=== PATIENT | male | born 1980 | race Hispanic/Latino ===

== ENCOUNTER 2021-10-14 00:44 | Inpatient (IN) | payer SELFPAY ==
[~2021-10-14] VITALS: Ht 165.1 cm; Wt 69.9 kg
[2021-10-14] VITALS (8 sets, daily range): BP systolic 101–121; BP diastolic 73–80
[2021-10-14] MEDS: PIPERACILLIN/TAZOBACTAM 3.375 GM in SODIUM CHLORIDE 0.9% 50ML 50 ML IV SCH ×6 (02:00→18:18)
[2021-10-14] MEDS: SODIUM CHLORIDE 0.9% 1000ML 1,000 ML IV SCH ×4 (02:00→17:00)
[2021-10-14 02:10] LABS: BASOPHILS % 0.1 % (0.0-1.0); HEMATOCRIT 41.4 % (38.2-49.6); LYMPHOCYTES # (AUTO) 1.4 (1.0-3.2); LYMPHOCYTES % 16.1 % (18.0-39.1); MEAN CORPUSCULAR HEMOGLOBIN 33.3 pg (28-32); MEAN CORPUSCULAR HGB CONC 36.2 g/dL (31-35); MONOCYTES # (AUTO) 0.5 (0.2-0.8); MONOCYTES % 5.6 % (4.4-11.3); NEUTROPHILS # (AUTO) 6.5 (2.1-6.9); NEUTROPHILS % 77.8 % (38.7-80.0); PLATELET COUNT 101 x10e3/uL (140-360)
[2021-10-14 02:26] LABS: ALBUMIN 3.1 g/dL (3.5-5.0); ALBUMIN/GLOBULIN RATIO 0.8 (0.8-2.0); ANION GAP 18.9 mmol/L (8-16); CALCIUM 9.2 mg/dL (8.4-10.2); CREATININE, SERUM 0.97 mg/dL (0.72-1.25); POTASSIUM 3.9 mmol/L (3.5-5.1)
[2021-10-14] MEDS: Morphine 2mg Syringe 2 MG/ML SYR IV PRN ×2 (04:59→22:04)
[2021-10-14] MEDS ORDERED: METFORMIN HCL500 MG PO (05:52)
[2021-10-14] MEDS ORDERED: DEXTROSE 50% SYRINGE 50 ML IV PRN (11:00)
[2021-10-14] MEDS: INSULIN LISPRO 100 UNIT/1 ML 3ML VIAL SQ SCH ×3 (11:30→21:00)
[2021-10-14] MEDS ORDERED: ACETAMINOPHEN 325 MG TAB PO PRN (16:15)
[2021-10-15] VITALS (9 sets, daily range): BP systolic 112–132; BP diastolic 73–93
[2021-10-15] MEDS: PIPERACILLIN/TAZOBACTAM 3.375 GM in SODIUM CHLORIDE 0.9% 50ML 50 ML IV SCH ×4 (00:38→22:50)
[2021-10-15] MEDS: SODIUM CHLORIDE 0.9% 1000ML 1,000 ML IV SCH ×3 (01:00→17:25)
[2021-10-15 06:22] LABS: INR 0.95; PROTHROMBIN TIME 13.3 seconds (11.9-14.5)
[2021-10-15 06:23] LABS: PARTIAL THROMBOPLASTIN TIME 36.2 seconds (23.8-35.5)
[2021-10-15 06:29] LABS: ALBUMIN 2.6 g/dL (3.5-5.0); ALBUMIN/GLOBULIN RATIO 0.7 (0.8-2.0); ANION GAP 18.5 mmol/L (8-16); CALCIUM 8.5 mg/dL (8.4-10.2); CREATININE, SERUM 0.74 mg/dL (0.72-1.25); MAGNESIUM 1.7 MG/DL (1.3-2.1); POTASSIUM 3.5 mmol/L (3.5-5.1)
[2021-10-15] MEDS: INSULIN LISPRO 100 UNIT/1 ML 3ML VIAL SQ SCH ×4 (07:30→20:40)
[2021-10-15 10:03] LABS: BASOPHILS % 0.1 % (0.0-1.0); HEMATOCRIT 37.8 % (38.2-49.6); HEMOGLOBIN 13.1 g/dL (14.0-18.0); LYMPHOCYTES # (AUTO) 1.3 (1.0-3.2); LYMPHOCYTES % 18.2 % (18.0-39.1); MEAN CORPUSCULAR HEMOGLOBIN 33.5 pg (28-32); MEAN CORPUSCULAR HGB CONC 34.7 g/dL (31-35); MEAN CORPUSCULAR VOLUME 96.7 fL (81-99); MONOCYTES # (AUTO) 0.4 (0.2-0.8); MONOCYTES % 4.9 % (4.4-11.3); NEUTROPHILS # (AUTO) 5.5 (2.1-6.9); NEUTROPHILS % 76.4 % (38.7-80.0); PLATELET COUNT 109 x10e3/uL (140-360); RED BLOOD COUNT 3.91 x10e6/uL (4.3-5.7); RED CELL DISTRIBUTION WIDTH 11.8 % (11.7-14.4)
[2021-10-15] MEDS ORDERED: BUPIVACAINE 0.25% 30ML SDV ONE (12:29)
[2021-10-15] MEDS ORDERED: GLYCOPYRROLATE INJ 0.2 MG/ML VIAL ONE (12:49)
[2021-10-15] MEDS ORDERED: LIDOCAINE HCL 2% LOCAL INJ 5 ML SDV VIAL INJ ONE (12:49)
[2021-10-15] MEDS ORDERED: SEVOFLURANE INHAL SOLN 250 ML PEN BTL ONE (12:49)
[2021-10-15] MEDS ORDERED: NEOSTIGMINE 1 MG/ML 10ML VIAL ONE (12:49)
[2021-10-15] MEDS ORDERED: POVIDONE IODINE 0.05% 0.05 % ML PO ONE (12:49)
[2021-10-15] MEDS ORDERED: ONDANSETRON HCL INJ 2MG/ML 2ML 2 MG/ML VIAL ONE (12:49)
[2021-10-15] MEDS ORDERED: ROCURONIUM BROMIDE 10 MG/ML 5ML VIAL IV ONE (12:49)
[2021-10-15] MEDS ORDERED: DEXAMETHASONE SOD PHOS INJ 4 MG/ML SDV ONE (12:49)
[2021-10-15] MEDS ORDERED: PROPOFOL IV EMULSION 10 MG/ML 20 ML VIAL ONE (12:49)
[2021-10-15] MEDS ORDERED: FENTANYL CITRATE/PF 100MCG/2 ML INJ ONE (13:09)
[2021-10-15] MEDS ORDERED: MIDAZOLAM HCL 2 MG/2 ML VIAL ONE (13:09)
[2021-10-15] MEDS ORDERED: HYDROMORPHONE 1MG/1ML INJ ONE (14:30)
[2021-10-15] MEDS ORDERED: KETOROLAC TROMETHAMINE 30 MG/ML VIAL IV PRN (15:30)
[2021-10-15] MEDS: Morphine 2mg Syringe 2 MG/ML SYR IV PRN (21:01)
[2021-10-16] VITALS (10 sets, daily range): BP systolic 126–148; BP diastolic 82–96
[2021-10-16] MEDS: SODIUM CHLORIDE 0.9% 1000ML 1,000 ML IV SCH (00:58)
[2021-10-16] MEDS: Morphine 2mg Syringe 2 MG/ML SYR IV PRN ×4 (01:08→10:07)
[2021-10-16] MEDS: HYDROCODONE/APAP 7.5MG-325MG 1 EA TAB PO PRN (04:34)
[2021-10-16] MEDS: PIPERACILLIN/TAZOBACTAM 3.375 GM in SODIUM CHLORIDE 0.9% 50ML 50 ML IV SCH ×4 (05:20→23:26)
[2021-10-16 07:06] LABS: BASOPHILS % 0.2 % (0.0-1.0); HEMATOCRIT 41.9 % (38.2-49.6); HEMOGLOBIN 14.4 g/dL (14.0-18.0); LYMPHOCYTES # (AUTO) 1.3 (1.0-3.2); LYMPHOCYTES % 12.6 % (18.0-39.1); MEAN CORPUSCULAR HEMOGLOBIN 33.2 pg (28-32); MEAN CORPUSCULAR HGB CONC 34.4 g/dL (31-35); MEAN CORPUSCULAR VOLUME 96.5 fL (81-99); MONOCYTES # (AUTO) 0.6 (0.2-0.8); MONOCYTES % 6.3 % (4.4-11.3); NEUTROPHILS # (AUTO) 8.1 (2.1-6.9); NEUTROPHILS % 80.3 % (38.7-80.0); PLATELET COUNT 137 x10e3/uL (140-360); RED BLOOD COUNT 4.34 x10e6/uL (4.3-5.7); RED CELL DISTRIBUTION WIDTH 11.3 % (11.7-14.4)
[2021-10-16 07:44] LABS: ALBUMIN 2.6 g/dL (3.5-5.0); ALBUMIN/GLOBULIN RATIO 0.6 (0.8-2.0); ANION GAP 20.8 mmol/L (8-16); CALCIUM 8.6 mg/dL (8.4-10.2); CREATININE, SERUM 0.76 mg/dL (0.72-1.25); MAGNESIUM 1.7 MG/DL (1.3-2.1); POTASSIUM 3.8 mmol/L (3.5-5.1)
[2021-10-16] MEDS: INSULIN LISPRO 100 UNIT/1 ML 3ML VIAL SQ SCH ×4 (08:30→20:56)
[2021-10-16] MEDS ORDERED: ONDANSETRON HCL INJ 2MG/ML 2ML 2 MG/ML VIAL IV PRN (09:00)
[2021-10-16] MEDS: HYDROMORPHONE 1MG/1ML INJ IV PRN ×3 (12:55→21:10)
[2021-10-16] MEDS ORDERED: MAGNESIUM OXIDE 400 MG TAB PO NR (16:00)
[2021-10-16 16:22] LABS: ABG HCO3 10 mmol/L (22-26); ABG PCO2 18 mmHg (35-45); ABG PH 7.34 (7.35-7.45); ABG PO2 78 mmHg (80-105); ABG TCO2 10
[2021-10-16] MEDS ORDERED: SODIUM BICARBONATE 8.4% 150 ML in DEXTROSE 5% 1,000 ML IV SCH (16:30)
[2021-10-16] MEDS ORDERED: INSULIN GLARGINE 100 UNITS/ML VIAL SQ SCH (21:00)
[2021-10-17] VITALS (10 sets, daily range): BP systolic 115–126; BP diastolic 71–85
[2021-10-17] MEDS: Morphine 2mg Syringe 2 MG/ML SYR IV PRN ×2 (00:20→23:45)
[2021-10-17] MEDS: HYDROMORPHONE 1MG/1ML INJ IV PRN ×3 (05:01→16:45)
[2021-10-17] MEDS: PIPERACILLIN/TAZOBACTAM 3.375 GM in SODIUM CHLORIDE 0.9% 50ML 50 ML IV SCH ×4 (05:01→22:05)
[2021-10-17 06:52] LABS: BASOPHILS % 0.3 % (0.0-1.0); EOSINOPHILS % 0.4 % (0.0-6.0); HEMATOCRIT 37.3 % (38.2-49.6); HEMOGLOBIN 13.7 g/dL (14.0-18.0); LYMPHOCYTES # (AUTO) 1.3 (1.0-3.2); LYMPHOCYTES % 17.6 % (18.0-39.1); MEAN CORPUSCULAR HEMOGLOBIN 33.3 pg (28-32); MEAN CORPUSCULAR HGB CONC 36.7 g/dL (31-35); MEAN CORPUSCULAR VOLUME 90.8 fL (81-99); MONOCYTES # (AUTO) 0.7 (0.2-0.8); MONOCYTES % 9.5 % (4.4-11.3); NEUTROPHILS # (AUTO) 5.4 (2.1-6.9); NEUTROPHILS % 71.4 % (38.7-80.0); PLATELET COUNT 194 x10e3/uL (140-360); RED BLOOD COUNT 4.11 x10e6/uL (4.3-5.7); RED CELL DISTRIBUTION WIDTH 10.9 % (11.7-14.4)
[2021-10-17 07:18] LABS: ALBUMIN 2.4 g/dL (3.5-5.0); ALBUMIN/GLOBULIN RATIO 0.6 (0.8-2.0); ANION GAP 19.5 mmol/L (8-16); CALCIUM 8.7 mg/dL (8.4-10.2); CREATININE, SERUM 0.78 mg/dL (0.72-1.25); POTASSIUM 3.5 mmol/L (3.5-5.1)
[2021-10-17] MEDS ORDERED: BISACODYL 10 MG SUPP PR ONE (08:00)
[2021-10-17] MEDS: INSULIN LISPRO 100 UNIT/1 ML 3ML VIAL SQ SCH ×4 (08:30→22:05)
[2021-10-17] MEDS: HYDROCODONE/APAP 7.5MG-325MG 1 EA TAB PO PRN ×2 (11:15→18:45)
[2021-10-17] MEDS: SODIUM BICARBONATE 650 MG TAB PO SCH (16:41)
[2021-10-17] MEDS ORDERED: INSULIN GLARGINE 100 UNITS/ML VIAL SQ SCH (21:00)
[2021-10-17] MEDS: BISACODYL 10 MG SUPP PR SCH (21:48)
[2021-10-18] VITALS: BP 112/73
[2021-10-18 04:00] VITALS: BP 116/80
[2021-10-18] MEDS: PIPERACILLIN/TAZOBACTAM 3.375 GM in SODIUM CHLORIDE 0.9% 50ML 50 ML IV SCH ×3 (04:13→17:00)
[2021-10-18 06:41] LABS: ALANINE AMINOTRANSFERASE 12 IU/L (0-55); ALBUMIN 2.3 g/dL (3.5-5.0); ALBUMIN/GLOBULIN RATIO 0.6 (0.8-2.0); ALKALINE PHOSPHATASE 61 IU/L (40-150); ANION GAP 13.7 mmol/L (8-16); BLOOD UREA NITROGEN < 5 mg/dL (7-26); CALCIUM 8.7 mg/dL (8.4-10.2); CARBON DIOXIDE 27 mmol/L (22-29); CHLORIDE 97 mmol/L (98-107); CREATININE, SERUM 0.59 mg/dL (0.72-1.25); EST GLOMERULAR FILTRATION RATE 150 ML/MIN (60-); GLUCOSE 175 mg/dL (74-118); SODIUM 135 mmol/L (136-145)
[2021-10-18 07:16] LABS: BASOPHILS % 0.3 % (0.0-1.0); EOSINOPHILS # (AUTO) 0.1 (0.0-0.4); EOSINOPHILS % 0.7 % (0.0-6.0); HEMATOCRIT 34.8 % (38.2-49.6); HEMOGLOBIN 12.7 g/dL (14.0-18.0); LYMPHOCYTES # (AUTO) 1.6 (1.0-3.2); LYMPHOCYTES % 21.7 % (18.0-39.1); MEAN CORPUSCULAR HEMOGLOBIN 33.2 pg (28-32); MEAN CORPUSCULAR HGB CONC 36.5 g/dL (31-35); MEAN CORPUSCULAR VOLUME 90.9 fL (81-99); MONOCYTES # (AUTO) 0.9 (0.2-0.8); MONOCYTES % 12.2 % (4.4-11.3); NEUTROPHILS # (AUTO) 4.6 (2.1-6.9); NEUTROPHILS % 64.1 % (38.7-80.0); PLATELET COUNT 260 x10e3/uL (140-360); RED BLOOD COUNT 3.83 x10e6/uL (4.3-5.7)
[2021-10-18 07:23] LABS: BUN/CREATININE RATIO 8 (6-25); POTASSIUM 2.7 mmol/L (3.5-5.1)
[2021-10-18] MEDS: BISACODYL 10 MG SUPP PR SCH (08:00)
[2021-10-18 08:11] VITALS: BP 119/78
[2021-10-18] MEDS ORDERED: MAGNESIUM SULFATE 2GM/50ML 50 ML IV ONE (08:30)
[2021-10-18] MEDS: INSULIN LISPRO 100 UNIT/1 ML 3ML VIAL SQ SCH ×3 (08:30→16:54)
[2021-10-18] MEDS ORDERED: POTASSIUM CHLORIDE 20 MEQ TAB CR PO ONE ×4 (08:30→15:36)
[2021-10-18] MEDS ORDERED: SODIUM CHLORIDE 0.9% 250ML 250 ML ONE (08:47)
[2021-10-18] MEDS ORDERED: ONDANSETRON HCL 4 MG ORAL DISINTEGRATING TAB PO PRN (09:00)
[2021-10-18] MEDS: SODIUM BICARBONATE 650 MG TAB PO SCH (09:00)
[2021-10-18 09:41] VITALS: BP 119/78
[2021-10-18 11:31] VITALS: BP 142/87
[2021-10-18] MEDS: HYDROCODONE/APAP 7.5MG-325MG 1 EA TAB PO PRN ×2 (12:40→17:01)
[2021-10-18] MEDS ORDERED: METRONIDAZOLE500 MG PO (14:23)
[2021-10-18] MEDS ORDERED: ONDANSETRON ODT4 MG PO (14:23)
[2021-10-18] MEDS ORDERED: CIPRO500 MG PO (14:23)
[2021-10-18] MEDS ORDERED: INSULIN PEN NE1 EAC3 SC (14:23)
[2021-10-18] MEDS ORDERED: LANTUS 3ML100 UNITS/ SC (14:23)
[2021-10-18] MEDS ORDERED: HYDROCODON-ACE1 EA12 PO (14:23)
[2021-10-18 14:31] LABS: ANION GAP 16.5 mmol/L (8-16); CALCIUM 8.8 mg/dL (8.4-10.2); CREATININE, SERUM 0.66 mg/dL (0.72-1.25); POTASSIUM 3.5 mmol/L (3.5-5.1)
[2021-10-18] MEDS ORDERED: LEVOFLOXACIN250 MG PO (14:33)
[2021-10-18 16:25] VITALS: BP 112/78
== END 2021-10-18 18:20 | disposition home or self-care (01) | DRG 341 ==
LOC: MED/SURG 00:57
PROVIDERS: ADMIT Internal Medicine; ATTEND Internal Medicine
PROC: 0DTJ0ZZ Resection of Appendix, Open Approach (ICD-10-PCS; principal; 2021-10-14)
PROC: 0WJG4ZZ Inspection of Peritoneal Cavity, Percutaneous Endoscopic Approach (ICD-10-PCS; 2021-10-14)
DX: K35.890 Other acute appendicitis without perforation or gangrene (principal); E11.10 Type 2 diabetes mellitus with ketoacidosis without coma; E87.6 Hypokalemia; E83.42 Hypomagnesemia; Z20.822 Contact with and (suspected) exposure to COVID-19; Z79.4 Long term (current) use of insulin
CPT/HCPCS: 36415; 36600; 80048; 80053; 80329; 82805; 82948; 83036; 83605; 83735; 83930; 84133; 84300; 85025; 85610; 85730; 87040; 88304; 96360; 96372; C1766; J1100; J1170; J1815; J2001; J2250; J2270; J2405; J2543; J2710; J3010; J3475; J7030; J7050; J7070; U0002